=== PATIENT | female | born 1950 | race Hispanic/Latino ===

== ENCOUNTER → 2020-10-04 | Outpatient (CLI) | payer SELFPAY | END | disposition home or self-care (01) | LOC: RAH 12:52 | PROVIDERS: ATTEND Internal Medicine Cardiovascular Disease | DX: Z13.6 Encounter for screening for cardiovascular disorders (principal) | CPT/HCPCS: 75571 ==

== ENCOUNTER → 2025-02-28 | Outpatient (CLI) | payer OTHER ==
[~2025-02-28] MED LIST: AUSTEDO PO; BUSP10TA3 PO; BUSP5TAB3 PO; CLON0.5T4 PO; DEUT12TA PO; DONE10TA43 PO; EMPA25TA PO; FAMO40TA7 PO; GABA-529 PO; GABA300C PO; ICOS1CAP PO; LISI40TA15 PO; OMEP40CA21 PO; PRIM50TA23 PO; ROSU20TA98 PO; SITA100T12 PO; SOLI5 PO; TRAZ-185 PO; TRINTELLIX PO
--- NOTE | 2025-03-01 07:22 | HMCIMG ---
EXAM: CT Cardiac calcium scoring. CLINICAL HISTORY: Screening. TECHNIQUE: Thin collimated axial CT cardiac images were obtained. A CT scan is done according to ALARA (As Low As Reasonably Achievable). CONTRAST: None. COMPARISON: None provided. FINDINGS: Calcium Score: VESSEL Number of lesions Volume mm3 Equi. Mass/mg Calcium score LM 2 16.7 - 21.9 LAD 0 0.0 - 0.0 LCX 1 4.5 - 6.1 RCA 0 0.0 - 0.0 Total 3 21.2 - 28.0 IMPRESSION: The total calcium score is 28.0. 51th percentile. 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 /[place]
== END | disposition home or self-care (01) ==
LOC: RAH 13:52
PROVIDERS: ATTEND Internal Medicine Cardiovascular Disease
DX: Z13.6 Encounter for screening for cardiovascular disorders (principal); J43.9 Emphysema, unspecified; J98.4 Other disorders of lung
CPT/HCPCS: 75571